=== PATIENT | female | born 1970 | race Caucasian/White ===

== ENCOUNTER 2019-02-05 20:59 | Emergency (ER) | payer SELFPAY ==
[2019-02-05] MEDS ORDERED: ASPIRIN 81 MG CHEWABLE TABLET PO ONE (21:01)
--- NOTE | 2019-02-05 21:08 | Emergency Department Record ---
History of Present Illness - General Chief Complaint: Chest Pain Stated Complaint: CHEST PAIN Time Seen by Provider: 02/05/19 21:00 Source: Patient Mode of Arrival: Ambulatory Limitations: No limitations - History of Present Illness Initial Comments: 49 yo female presents to ED for evaluation of chest discomfort and vertigo symptoms that began approximately 1 hour ago. Patient denies a history of previous symptoms, denies previous heart problems. Patient denies any factors that improve or worsen her symptoms, denies fevers, chills, cough, or recent illness. Patient reports history of smoking, denies history of DVT or calf-pain symptoms. Patient denies health problems at her baseline. MD Complaint: Chest pain Onset/Timin -: Hour(s) Pain Location: Substernal Pain Radiation: None Severity: Moderate Quality: Other ("pressure") Consistency: Constant Improves With: Nothing Worsens With: Nothing Treatments Prior to Arrival: None - Related Data On Oral Contraceptives: No Home Medications Medication Instructions Recorded Confirmed Last Taken Alprazolam [Xanax] 1 mg PO TID 02/05/19 02/05/19 1 Day Ago ~02/04/19 Allergies Allergy/AdvReac Type Severity Reaction Status Date / Time hydrocodone AdvReac NAUSEA AND Verified 02/05/19 21:11 VOMITING Review of Systems Constitutional: Denies: Chills, Fever, Malaise, Night sweats Eyes: Denies: Eye discharge, Eye pain ENT: Denies: Congestion, Ear pain, Epistaxis Respiratory: Denies: Cough, Dyspnea Cardiovascular: Reports: Chest pain. Denies: Dyspnea on exertion, Edema Endocrine: Denies: Fatigue, Heat or cold intolerance Gastrointestinal: Denies: Abdominal pain, Nausea, Vomiting Genitourinary: Denies: Incontinence, Retention Musculoskeletal: Denies: Arthralgia, Back pain Skin: Denies: Bruising, Change in color Neurological: Denies: Abnormal gait, Confusion, Headache, Seizure Psychiatric: Denies: Anxiety Hematological/Lymphatic: Denies: Anemia, Blood Clots Physical Exam - General General Appearance: Alert, Oriented x3, Cooperative, No acute distress Limitations: No limitations - Head Head exam: Atraumatic, Normocephalic, Normal inspection Head exam detail: negative: Abrasion, Contusion, Noriega's sign, General tenderness, Hematoma, Laceration - Eye Eye exam: Normal appearance. negative: Conjunctival injection, Periorbital swelling, Periorbital tenderness, Scleral icterus - ENT Ear exam: negative: Auricular hematoma, Auricular trauma Nasal Exam: negative: Active bleeding, Discharge, Dried blood, Foreign body Mouth exam: negative: Drooling, Laceration, Muffled voice, Tongue elevation - Neck Neck exam: Normal inspection. negative: Meningismus, Tenderness - Respiratory Respiratory exam: Normal lung sounds bilaterally. negative: Rales, Respiratory distress, Rhonchi, Stridor - Cardiovascular Cardiovascular Exam: Regular rate, Normal rhythm, Normal heart sounds - GI/Abdominal GI/Abdominal exam: Soft. negative: Rebound, Rigid, Tenderness - Rectal Rectal exam: Deferred - exam: Deferred - Extremities Extremities exam: Normal inspection. negative: Pedal edema, Tenderness - Back Back exam: Denies: CVA tenderness (R), CVA tenderness (L) - Neurological Neurological exam: Alert, Normal gait, Oriented X3 - Psychiatric Psychiatric exam: Normal affect, Normal mood - Skin Skin exam: Normal color. negative: Abrasion Type of lesion: negative: abrasion Course - Reevaluation(s) Reevaluation #1: 02/05/19 21:08 EKG: NSR 84 Normal axis, normal intervals No acute ST-T wave changes. PERC clinical decision rule was applied, and the patient does not have any of the following: -Age > 50 years -Pulse > 100 -Oxygen Saturation < 94% -History of Hemoptysis -Unilateral leg swelling -History or PE/DVT -Recent surgery or Trauma -Oral contraceptive/Hormone use Reevaluation #2: 02/05/19 21:40 Laboratory studies were reviewed and appear grossly unremarkable for an acute process. Patient and her SO were updated on all results, patient reports "bone pain" on re-examination. Will order Toradol to be administered. The patient was deemed to be low-risk for cardiac disease based on the patients history and evaluation in the ED, HEART Score was applied and found to be 1. As a result, repeat Troponin in 3-hours appears appropriate and if negative for myocardial injury, the patient may be discharged home with appropriate outpatient follow-up for further evaluation. Reevaluation #3: 02/05/19 23:55 Patient was reassessed, patient is currently sleeping. Repeat troponin drawn at this time. Reevaluation #4: 02/06/19 00:31 Repeat troponin appears negative for myocardial injury. Patient was updated on all results, sleeping on re-examination but arouses to voice. Patient appears stable for discharge with instructions to follow-up with her PCP in 3-5 days as directed. Medical Decision Making - Lab Data Result diagrams: 02/05/19 21:10 02/05/19 21:10 Disposition Disposition: Discharge Clinical Impression: Atypical chest pain Disposition: Home, Self-Care Condition: (2) Stable Instructions: Chest Pain (ED) Additional Instructions: Return to ED if your symptoms worsen or if you have any concerns. Follow-up with your family doctor in 3-5 days as directed. Forms: Patient Portal Access Time of Disposition: 00:32 Quality - Quality Measures Quality Measures: N/A - Blood Pressure Screening Does Patient Have Any of the Following: No Blood Pressure Classification: Pre-Hypertensive BP Reading Systolic Measurement: 150 Diastolic Measurement: 89 Screening for High Blood Pressure: < Pre-Hypertensive BP, F/U Documented > [G8950] Pre-Hypertensive Follow-up Interventions: Referral to alternative/primary care provider.
[2019-02-05 21:15] LABS: ABSOLUTE NEUTROPHIL COUNT 3.01; BASO % 0.7 % (0-6); EOS % 1.6 % (0-6); GRAN % 51.8 % (47-80); HEMATOCRIT 37.1 % (35.0-47.0); HEMOGLOBIN 12.5 gm/dl (11.6-16.0); LYMPH % 38.3 % (16-45); MEAN CORPUSCULAR HEMOGLOBIN 30.3 pg (27-33); MEAN CORPUSCULAR HGB CONC 33.7 g/dl (32-36); MEAN PLATELET VOLUME 8.6 fl (7.4-10.4); MONO % 7.6 % (0-9); PLATELET COUNT 317 K/uL (130-400); RED BLOOD COUNT 4.12 M/uL (3.80-5.40); RED CELL DISTRIBUTION WIDTH 12.2 % (11.5-14.5); WHITE BLOOD COUNT W/O DIFF 5.8 K/uL (4.2-12.2)
[2019-02-05 21:28] LABS: BLOOD UREA NITROGEN 16 mg/dL (6-20); CREATININE 0.7 mg/dL (0.5-0.9); EST GLOMERULAR FILTRATION RATE > 60 mL/min
[2019-02-05 21:29] LABS: TOTAL PROTEIN 6.9 g/dL (6.6-8.7)
[2019-02-05 21:31] LABS: GLUCOSE,RANDOM 102 mg/dL (74-109)
[2019-02-05] MEDS ORDERED: LORAZEPAM 0.5 MG TABLET PO ONE (21:32)
[2019-02-05 21:33] LABS: ALB/GLOB RATIO 1.7 (1.1-1.8); ALBUMIN 4.3 g/dL (4.0-5.0); ALT/SGPT 8 U/L (<33); AST/SGOT 12 U/L (10.0-35.0)
[2019-02-05 21:34] LABS: ALKALINE PHOSPHATASE 59 U/L (35-104)
[2019-02-05] MEDS ORDERED: KETOROLAC 30 MG/ML VIAL IVP ONE (21:51)
[2019-02-05] MEDS ORDERED: 0.9 % SODIUM CHLORIDE 1000ML 500 ML IV SCH (22:15)
--- NOTE | 2019-02-06 13:14 | RADIOLOGY REPORT ---
EXAM: CHEST, TWO VIEWS HISTORY: MID STERNAL CHEST PAIN. TECHNIQUE: PA and lateral views of the chest were obtained. Comparison: None. FINDINGS: The cardiomediastinal silhouette is normal in size. The pulmonary vasculature is not congested. No focal consolidation, pleural effusion, or pneumothorax is seen. IMPRESSION: NO EVIDENCE FOR ACUTE CARDIOPULMONARY PROCESS. JOB NUMBER: [id number] MTDD
== END 2019-02-06 00:41 | disposition home or self-care (01) ==
LOC: ER 20:59
DX: R07.89 Other chest pain (principal); R42 Dizziness and giddiness; Z87.891 Personal history of nicotine dependence
CPT/HCPCS: 71046; 80053; 84484; 85025; 93005; 93010; 96374; 99284; J1885; J7030

== ENCOUNTER 2019-04-14 21:21 | Emergency (ER) | payer SELFPAY ==
[2019-04-14] MEDS ORDERED: 0.9 % SODIUM CHLORIDE 1,000 ML BAG IV ONE (22:04)
[2019-04-14] MEDS ORDERED: KETOROLAC 30 MG/ML VIAL IVP ONE (22:04)
[2019-04-14 22:26] LABS: BLOOD UREA NITROGEN 18 mg/dL (6-20); CREATININE 0.7 mg/dL (0.5-0.9); EST GLOMERULAR FILTRATION RATE > 60 mL/min
--- NOTE | 2019-04-14 22:26 | Emergency Department Record ---
History of Present Illness - General Chief Complaint: Abdominal Pain Stated Complaint: STOPPED BREATHING,CHRONIC DEGENERATIVE DISC Time Seen by Provider: 04/14/19 21:34 Source: Patient, Family, Old records reviewed Mode of Arrival: Ambulatory Limitations: No limitations - History of Present Illness Initial Comments: pt c/o runelda ap. her s/o states she has a few episodes of appearingto stop breathing for several seconds. she did not turn blue or red. he states he shook her to make her breathe again. she is taking multipe sedating meds. she was seen twice recently at [facility] for varying complaints. MD Complaint: Abdominal pain Onset/Timin -: Days(s) Location: RUQ Radiation: None Migration to: No migration Severity scale (1-10): 7 Quality: Sharp Consistency: Constant Improves With: Nothing Worsens With: Other Context: Foreign travel Associated Symptoms: Denies other symptoms - Related Data Patient : No Home Medications Medication Instructions Recorded Confirmed Last Taken Dicyclomine HCl 20 mg PO BID 04/14/19 04/14/19 Unknown Gabapentin 1 tab PO TID 04/14/19 04/14/19 Unknown Lidocaine Patch [Lidoderm] 1 each TOP DAILY 04/14/19 04/14/19 04/14/19 Naproxen 500 mg PO BID 04/14/19 04/14/19 Unknown Orphenadrine Citrate [Norflex] 1 tab PO BID 04/14/19 04/14/19 Unknown Allergies Allergy/AdvReac Type Severity Reaction Status Date / Time citalopram [From Celexa] Allergy RASH Verified 04/14/19 21:30 hydrocodone AdvReac NAUSEA AND Verified 02/05/19 21:11 VOMITING Travel Screening - Travel/Exposure Within Last 30 Days Have you traveled within the last 30 days?: No - Travel/Exposure Within Last Year Have you traveled outside the [place] in the last year?: No - Additonal Travel Details Have you been exposed to anyone with a communicable illness?: No - Travel Symptoms Symptom Screening: None Review of Systems Reviewed: No additional complaints except as noted below Constitutional: Reports: As per HPI. Denies: Chills, Fever, Malaise, Night sweats, Weakness, Weight change Eyes: Reports: As per HPI. Denies: Eye discharge, Eye pain, Photophobia, Vision change ENT: Reports: As per HPI. Denies: Congestion, Dental pain, Ear pain, Epistaxis, Hearing loss, Throat pain Respiratory: Reports: As per HPI. Denies: Cough, Dyspnea, Hemoptysis, Stridor, Wheezes Cardiovascular: Reports: As per HPI. Denies: Arrhythmia, Chest pain, Dyspnea on exertion, Edema, Murmurs, Orthopnea, Palpitations, Paroxysmal nocturnal dyspnea, Rheumatic Fever, Syncope Endocrine: Reports: As per HPI. Denies: Fatigue, Heat or cold intolerance, Polydipsia, Polyuria Gastrointestinal: Reports: As per HPI. Denies: Abdominal pain, Constipation, Diarrhea, Hematemesis, Hematochezia, Melena, Nausea, Vomiting Genitourinary: Reports: As per HPI. Denies: Abnormal menses, Discharge, Dyspareunia, Dysuria, Frequency, Hematuria, Incontinence, Retention, Urgency Musculoskeletal: Reports: As per HPI. Denies: Arthralgia, Back pain, Gout, Joint swelling, Myalgia, Neck pain Skin: Reports: As per HPI. Denies: Bruising, Change in color, Change in hair/nails, Lesions, Pruritus, Rash Neurological: Reports: As per HPI. Denies: Abnormal gait, Confusion, Headache, Numbness, Paresthesias, Seizure, Tingling, Tremors, Vertigo, Weakness Psychiatric: Reports: As per HPI. Denies: Anxiety, Auditory hallucinations, Depression, Homicidal thoughts, Suicidal thoughts, Visual hallucinations Hematological/Lymphatic: Reports: As per HPI. Denies: Anemia, Blood Clots, Easy bleeding, Easy bruising, Swollen glands Past Medical History - SOCIAL HISTORY Smoking Status: Current every day smoker Alcohol Use: Rare Drug Use: None - RESPIRATORY Hx Respiratory Disorders: No - CARDIOVASCULAR Hx Cardio Disorders: No - NEURO Hx Neuro Disorders: No - GI Hx GI Disorders: Yes Hx Irritable Bowel: Yes - Hx Genitourinary Disorders: No - ENDOCRINE Hx Endocrine Disorders: No Hx Diabetes: No Hx Thyroid Disease: No - MUSCULOSKELETAL Hx Musculoskeletal Disorders: Yes Hx Arthritis: Yes Comment:: DJD lower back - PSYCH Hx Psych Problems: Yes Hx Anxiety: Yes - HEMATOLOGY/ONCOLOGY Hx Hematology/Oncology Disorders: No Family Medical History Any Significant Family History?: Yes Family Hx Comment (NOT TO BE USED IN PLACE OF ITEMS BELOW): "all of the above" Physical Exam - General General Appearance: Alert, Oriented x3, Cooperative, Mild distress - Head Head exam: Normal inspection - Eye Eye exam: Normal appearance, PERRL, EOMI Pupils: Normal accommodation - ENT ENT exam: Normal exam, Mucous membranes moist, Normal external ear exam, Normal orophraynx Ear exam: Normal external inspection. negative: External canal tenderness Nasal Exam: Normal inspection. negative: Discharge, Sinus tenderness Mouth exam: Normal external inspection, Tongue normal Teeth exam: Normal inspection. negative: Dental caries Throat exam: Normal inspection. negative: Tonsillar erythema, Tonsillar exudate - Neck Neck exam: Normal inspection, Full ROM. negative: Tenderness - Respiratory Respiratory exam: Normal lung sounds bilaterally. negative: Respiratory distress - Cardiovascular Cardiovascular Exam: Normal rhythm, Normal heart sounds, Tachycardia - GI/Abdominal GI/Abdominal exam: Soft, Normal bowel sounds, Tenderness (ruq) - Rectal Rectal exam: Deferred - exam: Deferred - Extremities Extremities exam: Normal inspection, Full ROM, Normal capillary refill. negative: Tenderness - Back Back exam: Reports: Normal inspection, Full ROM. Denies: Muscle spasm, Rash noted, Tenderness - Neurological Neurological exam: Alert, Normal gait, Oriented X3, Reflexes normal - Psychiatric Psychiatric exam: Normal affect, Normal mood - Skin Skin exam: Dry, Intact, Normal color, Warm Course Vital Signs 04/14/19 21:36 Temperature 98.3 F Pulse Rate 109 H Respiratory 20 Rate Blood Pressure 121/70 Pulse Ox 99 - Reevaluation(s) Reevaluation #1: 04/14/19 23:46 ct shows cholecystitis Medical Decision Making - Lab Data Result diagrams: 04/14/19 22:09 04/14/19 22:09 Disposition Disposition: Transfer Clinical Impression: Acute cholecystitis Disposition: Acute Care Hospital Transfer Transfer To: [facility] Reason For Transfer: needs surgeon Accepting Physician: dr duong and dr guillaume Time Discussed w/Accepting Physician: 23:45 Forms: Patient Portal Access Quality - Quality Measures Quality Measures: N/A - Blood Pressure Screening Does Patient Have Any of the Following: No Blood Pressure Classification: Pre-Hypertensive BP Reading Systolic Measurement: 121 Diastolic Measurement: 70 Screening for High Blood Pressure: < Pre-Hypertensive BP, F/U Documented > [G8950] Pre-Hypertensive Follow-up Interventions: Follow-up with rescreen every year.
[2019-04-14 22:27] LABS: LIPASE 22 U/L (13-60); TOTAL PROTEIN 6.8 g/dL (6.6-8.7)
[2019-04-14 22:29] LABS: GLUCOSE,RANDOM 113 mg/dL (74-109)
[2019-04-14 22:31] LABS: ALT/SGPT 19 U/L (<33); AST/SGOT 15 U/L (10.0-35.0)
[2019-04-14 22:32] LABS: ALB/GLOB RATIO 1.3 (1.1-1.8); ALBUMIN 3.9 g/dL (4.0-5.0); ALKALINE PHOSPHATASE 76 U/L (35-104)
[2019-04-14 23:09] LABS: ABSOLUTE NEUTROPHIL COUNT 10.62; HEMATOCRIT 41.3 % (35.0-47.0); HEMOGLOBIN 13.5 gm/dl (11.6-16.0); MEAN CORPUSCULAR HEMOGLOBIN 30.4 pg (27-33); MEAN CORPUSCULAR HGB CONC 32.7 g/dl (32-36); MEAN PLATELET VOLUME 8.9 fl (7.4-10.4); PLATELET COUNT 343 K/uL (130-400); RED BLOOD COUNT 4.44 M/uL (3.80-5.40); RED CELL DISTRIBUTION WIDTH 12.6 % (11.5-14.5); WHITE BLOOD COUNT W/O DIFF 14.4 K/uL (4.2-12.2)
[2019-04-14 23:31] LABS: PLATELET ESTIMATE NORMAL (NORMAL)
[2019-04-15 00:14] LABS: URINE APPEARANCE SL CLOUDY; URINE BILIRUBIN NEGATIVE (NEGATIVE); URINE BLOOD MODERATE (NEGATIVE); URINE COLOR YELLOW; URINE GLUCOSE (UA) NEGATIVE (NEGATIVE); URINE KETONE NEGATIVE (NEGATIVE); URINE LEUKOCYTE ESTERASE SMALL (NEGATIVE); URINE NITRITE POSITIVE (NEGATIVE); URINE PROTEIN NEGATIVE (NEGATIVE)
[2019-04-15 00:24] LABS: URINE EPITHELIAL CELLS 16 - 20 (FEW); URINE WBC 16 - 20 (0-2/hpf)
[2019-04-15 00:25] LABS: URINE BACTERIA 4+
--- NOTE | 2019-04-16 09:41 | CT SCAN REPORT ---
EXAM: CT OF THE ABDOMEN AND PELVIS WITHOUT CONTRAST HISTORY: RIGHT UPPER QUADRANT ABDOMINAL PAIN. TECHNIQUE: Routine helical CT examination of the abdomen and pelvis was performed without oral or intravenous contrast administration. Lack of oral and IV contrast utilization limits evaluation of the bowel and solid viscera respectively. Comparison: Two view chest radiographic examination dated 02/05/19. FINDINGS: Partially imaged bilateral breast implants are identified. They appear intact. Mild dependent atelectasis in each lung base. The lung bases are otherwise clear and there is no pleural or pericardial effusion. Pericardial fluid volume anteriorly is at the upper limits of normal. The liver, spleen, pancreas, and adrenal glands are without focal abnormality. There is a tiny nonobstructing calculus in the lower pole of the left kidney. The kidneys are otherwise unremarkable. There is moderate wall thickening of the gallbladder with peripancreatic fat stranding/edema. No definite calcified gallstone. These findings are suspicious for acute cholecystitis given stated history of severe upper quadrant pain. No gross biliary ductal dilatation, however, identified. No intraabdominal nor retroperitoneal lymphadenopathy. The vasculature is normal in caliber. No pelvic mass nor adenopathy is seen. There is trace free fluid in the cul-de-sac. This is nonspecific though likely physiologic or reactive. No gross bowel dilatation is identified though the fat stranding in the right upper quadrant does extend to the level of the hepatic flexure of the colon. No free intraperitoneal air. There is a small fat filled umbilical/periumbilical hernia. No lytic or blastic bone lesion. Bilateral spondylolysis of L5 with Grade 1 anterolisthesis of L5 on S1. Multilevel degenerative changes are present within the visualized spine most pronounced at the lumbosacral junction where the end plate changes are advanced. IMPRESSION: 1. WALL THICKENING OF THE GALLBLADDER WITH ASSOCIATED PERICHOLECYSTIC FAT STRANDING/FLUID WITHOUT DEFINITE CALCIFIED GALLSTONE. THESE FINDINGS ARE SUSPICIOUS FOR ACUTE CHOLECYSTITIS GIVEN STATED HISTORY OF SEVERE ACUTE RIGHT UPPER QUADRANT PAIN. NO GROSS BILIARY DUCTAL DILATATION. 2. TRACE FLUID IN THE CUL-DE-SAC IS NONSPECIFIC THOUGH LIKELY PHYSIOLOGIC OR REACTIVE. 3. TINY NONOBSTRUCTING CALCULUS IN THE LOWER POLE OF THE LEFT KIDNEY. 4. MILD DEPENDENT ATELECTASIS IN EACH LUNG BASE. 5. BILATERAL SPONDYLOLYSIS OF L5 WITH GRADE 1 ANTEROLISTHESIS OF L5 ON S1. JOB NUMBER: [id number] [facility]
== END 2019-04-15 00:26 | disposition short-term general hospital (02) ==
LOC: ER 21:21
DX: K81.0 Acute cholecystitis (principal); R10.11 Right upper quadrant pain; R06.00 Dyspnea, unspecified; F17.210 Nicotine dependence, cigarettes, uncomplicated
CPT/HCPCS: 99285 ×2; 96374; 83690; 80053; 81001; 84484; 85379; 85027; 74176; 93005; 93010; J1885; J7030

== ENCOUNTER 2019-07-14 15:09 | Emergency (ER) | payer SELFPAY ==
[2019-07-14 15:31] LABS: URINE APPEARANCE CLEAR; URINE BILIRUBIN MODERATE (NEGATIVE); URINE BLOOD MODERATE (NEGATIVE); URINE KETONE NEGATIVE (NEGATIVE); URINE LEUKOCYTE ESTERASE MODERATE (NEGATIVE); URINE NITRITE POSITIVE (NEGATIVE); URINE UROBILINOGEN >=8.0 E.U./dL (0.20 - 1.00)
[2019-07-14 15:51] LABS: URINE COLOR ORANGE
[2019-07-14 15:52] LABS: URINE BACTERIA 2+; URINE EPITHELIAL CELLS 16 - 20 (FEW); URINE WBC 21 - 35 (0-2/hpf)
--- NOTE | 2019-07-14 16:07 | Emergency Department Record ---
History of Present Illness - General Chief complaint: Female Urogenital Problem Stated complaint: UTI Time Seen by Provider: 07/14/19 15:42 Source: Patient Mode of Arrival: Ambulatory Limitations: No limitations - History of Present Illness Initial comments: pt is having frequency, dysuria, urgency. she denies n/v or fever MD Complaint: Dysuria Onset/Timin -: Hour(s) Severity: Mild Consistency: Getting worse Associated Symptoms: Dysuria - Related Data Sexually active: Yes Home Medications Medication Instructions Recorded Confirmed Last Taken Aspirin [Aspir-Low] 81 mg PO DAILY 07/14/19 07/14/19 07/14/19 Previous Rx's Medication Instructions Recorded Cephalexin [Keflex] 500 mg PO BID #14 cap 07/14/19 Phenazopyridine HCl [Pyridium] 200 mg PO TID #6 tab 07/14/19 Allergies Allergy/AdvReac Type Severity Reaction Status Date / Time citalopram [From Celexa] Allergy RASH Verified 04/14/19 21:30 hydrocodone AdvReac NAUSEA AND Verified 02/05/19 21:11 VOMITING Travel Screening - Travel/Exposure Within Last 30 Days Have you traveled within the last 30 days?: No - Travel/Exposure Within Last Year Have you traveled outside the [place] in the last year?: No - Additonal Travel Details Have you been exposed to anyone with a communicable illness?: No - Travel Symptoms Symptom Screening: None Review of Systems Reviewed: No additional complaints except as noted below Constitutional: Reports: As per HPI. Denies: Chills, Fever, Malaise, Night sweats, Weakness, Weight change Eyes: Reports: As per HPI. Denies: Eye discharge, Eye pain, Photophobia, Vision change ENT: Reports: As per HPI. Denies: Congestion, Dental pain, Ear pain, Epistaxis, Hearing loss, Throat pain Respiratory: Reports: As per HPI. Denies: Cough, Dyspnea, Hemoptysis, Stridor, Wheezes Cardiovascular: Reports: As per HPI. Denies: Arrhythmia, Chest pain, Dyspnea on exertion, Edema, Murmurs, Orthopnea, Palpitations, Paroxysmal nocturnal dyspnea, Rheumatic Fever, Syncope Endocrine: Reports: As per HPI. Denies: Fatigue, Heat or cold intolerance, Polydipsia, Polyuria Gastrointestinal: Reports: As per HPI. Denies: Abdominal pain, Constipation, Diarrhea, Hematemesis, Hematochezia, Melena, Nausea, Vomiting Genitourinary: Reports: As per HPI. Denies: Abnormal menses, Discharge, Dyspareunia, Dysuria, Frequency, Hematuria, Incontinence, Retention, Urgency Musculoskeletal: Reports: As per HPI. Denies: Arthralgia, Back pain, Gout, Joint swelling, Myalgia, Neck pain Skin: Reports: As per HPI. Denies: Bruising, Change in color, Change in hair/nails, Lesions, Pruritus, Rash Neurological: Reports: As per HPI. Denies: Abnormal gait, Confusion, Headache, Numbness, Paresthesias, Seizure, Tingling, Tremors, Vertigo, Weakness Psychiatric: Reports: As per HPI. Denies: Anxiety, Auditory hallucinations, Depression, Homicidal thoughts, Suicidal thoughts, Visual hallucinations Hematological/Lymphatic: Reports: As per HPI. Denies: Anemia, Blood Clots, Easy bleeding, Easy bruising, Swollen glands Past Medical History - SOCIAL HISTORY Smoking Status: Current every day smoker Alcohol Use: Rare Drug Use: None - RESPIRATORY Hx Respiratory Disorders: No - CARDIOVASCULAR Hx Cardio Disorders: No - NEURO Hx Neuro Disorders: No - GI Hx GI Disorders: Yes Hx Irritable Bowel: Yes Hx of Polyps: Yes - Hx Genitourinary Disorders: Yes Hx Kidney Stones: Yes Hx UTI: Yes - ENDOCRINE Hx Endocrine Disorders: No Hx Diabetes: No Hx Thyroid Disease: No - MUSCULOSKELETAL Hx Musculoskeletal Disorders: Yes Hx Arthritis: Yes Comment:: DDD lower back - PSYCH Hx Psych Problems: Yes Hx Anxiety: Yes - HEMATOLOGY/ONCOLOGY Hx Hematology/Oncology Disorders: No Family Medical History Any Significant Family History?: No Family Hx Comment (NOT TO BE USED IN PLACE OF ITEMS BELOW): "all of the above" Physical Exam - General General Appearance: Alert, Oriented x3, Cooperative, Mild distress - Head Head exam: Normal inspection - Eye Eye exam: Normal appearance, PERRL, EOMI Pupils: Normal accommodation - ENT ENT exam: Normal exam, Mucous membranes moist, Normal external ear exam, Normal orophraynx Ear exam: Normal external inspection. negative: External canal tenderness Nasal Exam: Normal inspection. negative: Discharge, Sinus tenderness Mouth exam: Normal external inspection, Tongue normal Teeth exam: Normal inspection. negative: Dental caries Throat exam: Normal inspection. negative: Tonsillar erythema, Tonsillar exudate - Neck Neck exam: Normal inspection, Full ROM. negative: Tenderness - Respiratory Respiratory exam: Normal lung sounds bilaterally. negative: Respiratory distress - Cardiovascular Cardiovascular Exam: Regular rate, Normal rhythm, Normal heart sounds - GI/Abdominal GI/Abdominal exam: Soft, Normal bowel sounds. negative: Tenderness - Rectal Rectal exam: Deferred - exam: Deferred - Extremities Extremities exam: Normal inspection, Full ROM, Normal capillary refill. negative: Tenderness - Back Back exam: Reports: Normal inspection, Full ROM. Denies: Muscle spasm, Rash noted, Tenderness - Neurological Neurological exam: Alert, CN II-XII intact, Normal gait, Oriented X3 - Psychiatric Psychiatric exam: Normal affect, Normal mood - Skin Skin exam: Dry, Intact, Normal color, Warm Course Vital Signs 07/14/19 15:12 Temperature 98.1 F Pulse Rate 85 Respiratory 16 Rate Blood Pressure 125/92 Pulse Ox 98 Medical Decision Making - Lab Data Lab Results 07/14/19 Range/Units 15:30 Urine Color Evangeline H Urine Appearance Clear Urine pH 5.0 (5.0-8.0) Ur Specific [place] 1.025 (1.002-1.030) Urine Protein 100 mg/dl H (NEGATIVE) Urine Glucose (UA) 100 mg/dl H (NEGATIVE) Urine Ketones Negative (NEGATIVE) Urine Blood Moderate (NEGATIVE) Urine Nitrite Positive H (NEGATIVE) Urine Bilirubin Moderate H (NEGATIVE) Urine Urobilinogen >=8.0 (0.20 - 1.00) E.U./dL Ur Leukocyte Esterase Moderate H (NEGATIVE) Urine RBC 7 - 10 (NONE SEEN) Urine WBC 21 - 35 (0-2/hpf) Ur Epithelial Cells 16 - 20 (FEW) Urine Bacteria 2+ Disposition Disposition: Discharge Clinical Impression: UTI (urinary tract infection) Qualifiers: Urinary tract infection type: acute cystitis Hematuria presence: with hematuria Qualified Code(s): N30.01 - Acute cystitis with hematuria Disposition: Home, Self-Care Condition: (1) Good Instructions: Urinary Tract Infection in Women (ED) Additional Instructions: follow up with family doctor. return sooner if worse. push fluids Prescriptions: Cephalexin [Keflex] 500 mg PO BID #14 cap Phenazopyridine HCl [Pyridium] 200 mg PO TID #6 tab Quality - Quality Measures Quality Measures: N/A - Blood Pressure Screening Does Patient Have Any of the Following: No Blood Pressure Classification: Hypertensive Reading Systolic Measurement: 125 Diastolic Measurement: 92 Screening for High Blood Pressure: < Pre-Hypertensive BP, F/U Documented > [G8950] Pre-Hypertensive Follow-up Interventions: Follow-up with rescreen every year.
== END 2019-07-14 16:21 | disposition home or self-care (01) ==
LOC: ER 15:09
DX: N30.01 Acute cystitis with hematuria (principal); F17.210 Nicotine dependence, cigarettes, uncomplicated
CPT/HCPCS: 36416; 81001; 82948; 99283

== ENCOUNTER 2019-07-29 02:20 | Emergency (ER) | payer SELFPAY ==
--- NOTE | 2019-07-29 02:27 | Emergency Department Record ---
History of Present Illness - General Stated complaint: UTI Time Seen by Provider: 07/29/19 02:21 Source: Patient Mode of Arrival: Ambulatory Limitations: No limitations - History of Present Illness Initial comments: 49 yo female presents with symptoms consistent with UTI. She reports she was recently seen and treated for a UTI. A urine culture was performed on 07/14/2019 that grew >100,000 escherichia coli. She was treated with Keflex and Pyridium. She is currently having burning and frequency again. No fevers. She has had prior renal stones. No current signs of symptoms that are similar for her like prior stone passage. No flank pain. No visible hematuria. She has small frequent urinations with burning. MD Complaint: Dysuria -: Days(s) Location: Suprapubic Radiation: Other Severity: Moderate Quality: Other Consistency: Constant Improves with: None Worsens with: Urination Associated Symptoms: Dysuria - Related Data Previous Rx's Medication Instructions Recorded Fluconazole [Diflucan] 150 mg PO ONCE #2 tab 07/29/19 Phenazopyridine HCl [Pyridium] 100 mg PO TID #6 tablet 07/29/19 Sulfamethoxazole/Trimethoprim 1 each PO BID #14 tablet 07/29/19 [Bactrim Ds Tablet] Allergies Allergy/AdvReac Type Severity Reaction Status Date / Time citalopram [From Celexa] Allergy RASH Verified 04/14/19 21:30 hydrocodone AdvReac NAUSEA AND Verified 02/05/19 21:11 VOMITING Review of Systems Constitutional: Denies: Chills, Fever, Malaise, Weakness Eyes: Denies: Eye discharge ENT: Denies: Congestion, Throat pain Respiratory: Denies: Cough, Dyspnea Cardiovascular: Denies: Chest pain, Edema Endocrine: Denies: Fatigue, Polydipsia, Polyuria Gastrointestinal: Denies: Abdominal pain, Diarrhea, Nausea, Vomiting Genitourinary: Reports: Dysuria, Frequency, Urgency Musculoskeletal: Denies: Arthralgia, Back pain, Neck pain Skin: Denies: Bruising, Change in color, Rash Neurological: Denies: Headache Psychiatric: Denies: Anxiety Hematological/Lymphatic: Denies: Easy bleeding, Easy bruising Past Medical History - SOCIAL HISTORY Smoking Status: Current every day smoker Drug Use: None - RESPIRATORY Hx Respiratory Disorders: No - CARDIOVASCULAR Hx Cardio Disorders: No - NEURO Hx Neuro Disorders: No - GI Hx GI Disorders: Yes Hx Irritable Bowel: Yes Hx of Polyps: Yes - Hx Genitourinary Disorders: Yes Hx Kidney Stones: Yes Hx UTI: Yes - ENDOCRINE Hx Endocrine Disorders: No Hx Diabetes: No Hx Thyroid Disease: No - MUSCULOSKELETAL Hx Musculoskeletal Disorders: Yes Hx Arthritis: Yes Comment:: DDD lower back - PSYCH Hx Psych Problems: Yes Hx Anxiety: Yes - HEMATOLOGY/ONCOLOGY Hx Hematology/Oncology Disorders: No Family Medical History Family Hx Comment (NOT TO BE USED IN PLACE OF ITEMS BELOW): "all of the above" Physical Exam - General General Appearance: Alert, Oriented x3, Cooperative, No acute distress Limitations: No limitations - Head Head exam: Atraumatic, Normal inspection - Eye Eye exam: Normal appearance. negative: Conjunctival injection - ENT ENT exam: Normal exam Ear exam: Normal external inspection Nasal Exam: Normal inspection Mouth exam: Normal external inspection - Neck Neck exam: Normal inspection - Respiratory Respiratory exam: Normal lung sounds bilaterally. negative: Decreased breath sounds, Rhonchi, Stridor, Wheezes - Cardiovascular Cardiovascular Exam: Regular rate, Normal rhythm, Normal heart sounds - GI/Abdominal GI/Abdominal exam: Soft. negative: Distended, Guarding, Tenderness - Rectal Rectal exam: Deferred - exam: Deferred - Back Back exam: Denies: CVA tenderness (R), CVA tenderness (L) - Neurological Neurological exam: Alert, Oriented X3 - Psychiatric Psychiatric exam: Normal affect, Normal mood. negative: Agitated, Anxious - Skin Skin exam: Dry, Intact, Normal color, Warm Course - Reevaluation(s) Reevaluation #1: 07/29/19 02:36 The prior sensitivity was reviewed S to Bactrim. She has tolerated this well in the past Disposition Disposition: Discharge Clinical Impression: UTI (urinary tract infection) Qualifiers: Urinary tract infection type: site unspecified Hematuria presence: without hematuria Qualified Code(s): N39.0 - Urinary tract infection, site not specified Disposition: Home, Self-Care Condition: (1) Good Instructions: Urinary Tract Infection in Women (ED) Additional Instructions: Return to the ER for a recheck immediately if worse, any new concerns or questions Take the prescriptions provided as directed Prescriptions: Sulfamethoxazole/Trimethoprim [Bactrim Ds Tablet] 1 each PO BID #14 tablet Fluconazole [Diflucan] 150 mg PO ONCE #2 tab Phenazopyridine HCl [Pyridium] 100 mg PO TID #6 tablet Forms: Patient Portal Access Time of Disposition: 02:37 Quality - Quality Measures Quality Measures: N/A - Blood Pressure Screening Does Patient Have Any of the Following: No Blood Pressure Classification: Pre-Hypertensive BP Reading Systolic Measurement: 121 Diastolic Measurement: 85 Screening for High Blood Pressure: < Pre-Hypertensive BP, F/U Documented > [G8950] Pre-Hypertensive Follow-up Interventions: Referral to alternative/primary care provider.
[2019-07-29] MEDS ORDERED: PHENAZOPYRIDINE HCL 95 MG TABLET PO ONE (02:34)
[2019-07-29] MEDS ORDERED: TMP/SMZ 160MG/800MG TAB PO ONE (02:34)
[2019-07-29 02:39] LABS: URINE APPEARANCE TURBID; URINE COLOR YELLOW; URINE GLUCOSE (UA) NEGATIVE (NEGATIVE)
[2019-07-29 02:40] LABS: URINE BILIRUBIN NEGATIVE (NEGATIVE); URINE BLOOD LARGE (NEGATIVE); URINE KETONE NEGATIVE (NEGATIVE); URINE LEUKOCYTE ESTERASE MODERATE (NEGATIVE); URINE NITRITE NEGATIVE (NEGATIVE); URINE UROBILINOGEN 0.2 E.U./dL (0.20 - 1.00)
[2019-07-29 02:47] LABS: URINE EPITHELIAL CELLS RARE (FEW)
[2019-07-29 02:48] LABS: URINE BACTERIA FEW; URINE RBC 21 - 35 (NONE SEEN)
== END 2019-07-29 02:50 | disposition home or self-care (01) ==
LOC: ER 02:20
DX: N39.0 Urinary tract infection, site not specified (principal); F17.210 Nicotine dependence, cigarettes, uncomplicated
CPT/HCPCS: 81001; 99283

== ENCOUNTER 2019-08-30 16:55 | Emergency (ER) | payer SELFPAY ==
[2019-08-30] MEDS ORDERED: LORAZEPAM 2 MG/ML VIAL IV ONE (17:23)
--- NOTE | 2019-08-30 17:30 | Emergency Department Record ---
History of Present Illness - General Chief complaint: Pain Stated complaint: UNABLE TO EAT Time Seen by Provider: 08/30/19 17:18 Source: Patient Mode of Arrival: Ambulatory Limitations: No limitations - History of Present Illness Initial comments: The patient is here due to total body pain with intermittent hot flashes for a month that now seem to be worsening and she no longer can take it so she came to the ER. The patient states she has a long hx of similar issues and does have significant anxiety but is out of her Xanax. There has been no hx of fever, SOB, ELEANOR, CP, back pain or diarrhea. MD Complaint: Other Onset/Timin -: Month(s) Associated Symptoms: Denies other symptoms - Related Data Previous Rx's Medication Instructions Recorded Fluconazole [Diflucan] 150 mg PO ONCE #2 tab 07/29/19 Phenazopyridine HCl [Pyridium] 100 mg PO TID #6 tablet 07/29/19 Sulfamethoxazole/Trimethoprim 1 each PO BID #14 tablet 07/29/19 [Bactrim Ds Tablet] Cephalexin [Keflex] 500 mg PO TID #21 cap 08/30/19 Allergies Allergy/AdvReac Type Severity Reaction Status Date / Time citalopram [From Celexa] Allergy RASH Verified 04/14/19 21:30 hydrocodone AdvReac NAUSEA AND Verified 02/05/19 21:11 VOMITING Travel/Exposure Screening - Travel/Exposure Within Last 30 Days Have you traveled within the last 30 days?: No - Travel/Exposure Within Last Year Have you traveled outside the [place] in the last year?: No - Additonal Travel/Exposure Details Have you been exposed to anyone with a communicable illness?: No - Travel Symptoms Symptom Screening: Joint & Muscle Aches, Vomiting Review of Systems Constitutional: Reports: Malaise. Denies: Chills, Fever Eyes: Denies: Eye discharge ENT: Denies: Congestion Respiratory: Denies: Cough, Dyspnea Cardiovascular: Denies: Chest pain Endocrine: Reports: Fatigue Gastrointestinal: Denies: Diarrhea Genitourinary: Denies: Dysuria Musculoskeletal: Denies: Arthralgia Skin: Denies: Bruising Past Medical History - SOCIAL HISTORY Smoking Status: Current some day smoker Alcohol Use: None Drug Use: None - RESPIRATORY Hx Respiratory Disorders: No - CARDIOVASCULAR Hx Cardio Disorders: No - NEURO Hx Neuro Disorders: No - GI Hx GI Disorders: Yes Hx Irritable Bowel: Yes Hx of Polyps: Yes - Hx Genitourinary Disorders: Yes Hx Kidney Stones: Yes Hx UTI: Yes - ENDOCRINE Hx Endocrine Disorders: No Hx Diabetes: No Hx Thyroid Disease: No - MUSCULOSKELETAL Hx Musculoskeletal Disorders: Yes Hx Arthritis: Yes Comment:: DDD lower back - PSYCH Hx Psych Problems: Yes Hx Anxiety: Yes - HEMATOLOGY/ONCOLOGY Hx Hematology/Oncology Disorders: No Family Medical History Any Significant Family History?: No Family Hx Comment (NOT TO BE USED IN PLACE OF ITEMS BELOW): "all of the above" Physical Exam - General General Appearance: Alert, Oriented x3, Cooperative, No acute distress - Head Head exam: Atraumatic, Normocephalic, Normal inspection - Eye Eye exam: Normal appearance, PERRL - ENT Throat exam: Normal inspection. negative: Tonsillar erythema, Tonsillar exudate - Neck Neck exam: Normal inspection, Full ROM. negative: Tenderness - Respiratory Respiratory exam: Normal lung sounds bilaterally. negative: Respiratory distress - Cardiovascular Cardiovascular Exam: Regular rate, Normal rhythm, Normal heart sounds - GI/Abdominal GI/Abdominal exam: Soft, Normal bowel sounds. negative: Tenderness - Extremities Extremities exam: Normal inspection, Full ROM, Normal capillary refill. negative: Tenderness - Back Back exam: Denies: Vertebral tenderness - Neurological Neurological exam: Alert, Normal gait. negative: Abnormal gait, Motor sensory deficit - Psychiatric Psychiatric exam: Anxious - Skin Skin exam: negative: Rash Course Vital Signs 08/30/19 17:20 Temperature 98.1 F Pulse Rate 110 H Respiratory 20 Rate Blood Pressure 155/106 Pulse Ox 96 - Reevaluation(s) Reevaluation #1: The patient is doing a lot better at this time. She is much more relaxed and leonela y calm now. I did also look at the patient's chronically infected L big toe and did recommend referral to Podiatry. She does have a mildly infected L big toe but there is no paronychia to drain. We will refer her to Dr. Campos. 08/30/19 18:20 Medical Decision Making - Data Complexity MDM Data: Labs Ordered and/or Reviewed - Lab Data Result diagrams: 08/30/19 17:30 08/30/19 17:30 Disposition Disposition: Discharge Clinical Impression: Anxiety Disposition: Home, Self-Care Condition: (2) Stable Instructions: Anxiety (ED) Additional Instructions: Please soak the L big toe in warm water every 2 hours when possible and see Dr. Campos for further evaluation. Also take the Keflex as directed. Please see your family doctor tomorrow or early next week for recheck and for more Xanax. Return to the ER for any worsening issues or problems. Prescriptions: Cephalexin [Keflex] 500 mg PO TID #21 cap Referrals: Bryant Campos [email or web address] [DOCTOR OF PODIATRY MEDICINE] - Forms: Patient Portal Access Time of Disposition: 18:28 Quality - Quality Measures Quality Measures: N/A - Blood Pressure Screening View Details: Yes Does Patient Have Any of the Following: No Blood Pressure Classification: Hypertensive Reading Systolic Measurement: 149 Diastolic Measurement: 64 Screening for High Blood Pressure: < First Hypertensive BP, F/U Documented > [G8950] First Hypertensive Follow-up Interventions: Referral to alternative/primary care provider.
[2019-08-30 17:42] LABS: ABSOLUTE NEUTROPHIL COUNT 8.41; BASO % 0.3 % (0-6); EOS % 0.2 % (0-6); GRAN % 73.1 % (47-80); HEMATOCRIT 41.7 % (35.0-47.0); HEMOGLOBIN 14.2 gm/dl (11.6-16.0); LYMPH % 21.8 % (16-45); MEAN CELL VOLUME 90.1 fl (81-97); MEAN CORPUSCULAR HEMOGLOBIN 30.7 pg (27-33); MEAN CORPUSCULAR HGB CONC 34.1 g/dl (32-36); MEAN PLATELET VOLUME 9.5 fl (7.4-10.4); MONO % 4.6 % (0-9); PLATELET COUNT 345 K/uL (130-400); RED BLOOD COUNT 4.63 M/uL (3.80-5.40); RED CELL DISTRIBUTION WIDTH 12.4 % (11.5-14.5); WHITE BLOOD COUNT W/O DIFF 11.5 K/uL (4.2-12.2)
[2019-08-30 17:47] LABS: URINE APPEARANCE CLEAR; URINE BILIRUBIN NEGATIVE (NEGATIVE); URINE BLOOD MODERATE (NEGATIVE); URINE COLOR YELLOW; URINE GLUCOSE (UA) NEGATIVE (NEGATIVE); URINE KETONE 15 mg/dL (NEGATIVE); URINE LEUKOCYTE ESTERASE NEGATIVE (NEGATIVE); URINE NITRITE NEGATIVE (NEGATIVE); URINE PROTEIN NEGATIVE (NEGATIVE); URINE UROBILINOGEN 0.2 E.U./dL (0.20 - 1.00)
[2019-08-30 17:52] LABS: AMPHETAMINE SCREEN URINE NOT DETECTED; BARBITURATE SCREEN URINE NOT DETECTED; BENZODIAZEPINE SCREEN URINE NOT DETECTED; BLOOD UREA NITROGEN 16 mg/dL (6-20); COCAINE SCREEN URINE NOT DETECTED; METHADONE SCREEN URINE NOT DETECTED; METHAMPHETAMINE SCREEN NOT DETECTED; OPIATE SCREEN URINE NOT DETECTED; OXYCODONE SCREEN URINE NOT DETECTED; PHENCYCLIDINE SCREEN URINE NOT DETECTED; PROPOXYPHENE SCREEN URINE NOT DETECTED; THC SCREEN URINE DETECTED; TRICYCLIC ANTIDEPRESSANT SCRN DETECTED
[2019-08-30 17:53] LABS: CREATININE 0.7 mg/dL (0.5-0.9); EST GLOMERULAR FILTRATION RATE > 60 mL/min
[2019-08-30 17:55] LABS: GLUCOSE,RANDOM 118 mg/dL (74-109)
[2019-08-30 17:58] LABS: ALB/GLOB RATIO 1.7 (1.1-1.8); ALKALINE PHOSPHATASE 77 U/L (35-104); ALT/SGPT 10 U/L (<33); AST/SGOT 14 U/L (10.0-35.0)
[2019-08-30 17:59] LABS: URINE EPITHELIAL CELLS 0 - 2 (FEW); URINE WBC 0 - 2 (0-2/hpf)
[2019-08-30] MEDS ORDERED: 0.9 % SODIUM CHLORIDE 1,000 ML BAG IV ONE (18:09)
--- NOTE | 2019-08-30 18:21 | RADIOLOGY REPORT ---
EXAMINATION: Two View Chest Radiographs EXAM DATE: 08/30/2019 6:03 PM TECHNIQUE: Frontal and lateral views INDICATION: body pain COMPARISON: None ENCOUNTER: Not applicable FINDINGS: The heart, mediastinum, and pulmonary vasculature are normal. No lung consolidation or pleural effu sions are present. No pneumothorax. Osseous structures and soft tissue markings are normal. IMPRESSION: Normal chest. Dictated by: Arthur Castaneda DO on 08/30/2019 6:18 PM. .
[2019-08-30] MEDS ORDERED: LORAZEPAM 0.5 MG TABLET PO ONE (18:24)
== END 2019-08-30 18:45 | disposition home or self-care (01) ==
LOC: ER 16:55
DX: F41.9 Anxiety disorder, unspecified (principal); L08.9 Local infection of the skin and subcutaneous tissue, unspecified; R52 Pain, unspecified; F17.210 Nicotine dependence, cigarettes, uncomplicated
CPT/HCPCS: 71046; 80053; 80305; 81001; 85025; 96374; 99284; J7030